=== PATIENT | male | born 1975 | race Caucasian/White ===

== ENCOUNTER 2019-06-11 07:50 | Emergency (ER) | payer OTHER ==
[2019-06-11 08:18] VITALS: O2SAT 98
--- NOTE | 2019-06-11 08:39 | XRAY ---
Indication: Pain following injury. Comparison: None 3 views of the left wrist obtained. No bony, articular, or soft tissue abnormalities.
--- NOTE | 2019-06-11 08:44 | ERPHSYRPT ---
- History of Present Illness Time Seen by Provider: 06/11/19 08:25 Source: patient Exam Limitations: no limitations Patient Subjective Stated Complaint: Left wrist injury Triage Nursing Assessment: Patient ambulated back to ED and transferred self to bed. Patient A+O X 3. Patient's skin pink, warm and dry. Patient complains of a left wrist injury after a work related incident. Patient states he was taking a piece of pipe off of a machine with a lot of pressure causing the pipe to hit his left wrist. Patient states pain is constant sharp and burning pain 9/10. No bruising or swelling noted. Patient has diesel fuel mixed with explosive on his clothing. Patient told nurse once back in ER. Patient declined shower, but was given a bag for dirty cloths and given fresh linens. Physician History: This is a right-handed 44-year-old white male who was at work this morning when an item under pressure was released and hit him in his left wrist. He is having pain in the area of his left wrist. He has sensation and full range of motion but is slow to move because of the pain. No other pain or injury sites present. patient's states that he has had hydrocodone in the past and is given him itching. He thinks he has had Tylenol with codeine that does not cause these type of symptoms. Occurred: just prior to arrival Method of Injury: direct blow Quality: aching, throbbing Severity of Pain-Max: moderate Severity of Pain-Current: moderate Extremities Pain Location: wrist: left Modifying Factors: Improves With: movement Associated Symptoms: none Allergies/Adverse Reactions: hydrocodone [From Vicodin] Allergy (Mild, Verified 06/11/19 08:32) Hx Influenza Vaccination/Date Given: Yes Hx Pneumococcal Vaccination/Date Given: No Immunizations Up to Date: Yes Travel Risk - International Travel Have you traveled outside of the country in past 3 weeks: No Have you or anyone close to you been diagnosed with or: No Do your reside in a community with a known COVID-19 case?: Yes If Yes where:: [place] - Coronavirus Screening Has patient experienced Coronavirus symptoms: No - Review of Systems Constitutional: No Symptoms Eyes: No Symptoms Ears, Nose, & Throat: No Symptoms Respiratory: No Symptoms Cardiac: No Symptoms Abdominal/Gastrointestinal: No Symptoms Genitourinary Symptoms: No Symptoms Musculoskeletal: Injury (Left wrist) Skin: No Symptoms Neurological: No Symptoms Psychological: No Symptoms Endocrine: No Symptoms Hematologic/Lymphatic: No Symptoms Immunological/Allergic: No Symptoms All Other Systems: Reviewed and Negative - Past Medical History Pertinent Past Medical History: Yes Neurological History: No Pertinent History ENT History: No Pertinent History Cardiac History: Myocardial Infarction (ND) Respiratory History: No Pertinent History Endocrine Medical History: Diabetes Type II Musculoskeletal History: No Pertinent History GI Medical History: No Pertinent History History: No Pertinent History Psycho-Social History: No Pertinent History Male Reproductive Disorders: No Pertinent History Other Medical History: Anemia - Past Surgical History Past Surgical History: Yes Neuro Surgical History: No Pertinent History Cardiac: No Pertinent History Respiratory: No Pertinent History Gastrointestinal: Cholecystectomy Genitourinary: No Pertinent History Musculoskeletal: Orthopedic Surgery Male Surgical History: No Pertinent History Other Surgical History: Right wrist, Right knee surgery, temporal artery surgery - Social History Smoking Status: Never smoker Exposure to second hand smoke: Yes Drug Use: none Patient Lives Alone: No - Nursing Vital Signs Nursing Vital Signs: Initial Vital Signs Temperature 98.0 F 06/11/19 08:00 Pulse Rate 88 06/11/19 08:00 Respiratory Rate 18 06/11/19 08:00 Blood Pressure 163/107 06/11/19 08:00 O2 Sat by Pulse Oximetry 98 06/11/19 08:00 Pain Scale Pain Intensity 9 - Physical Exam General Appearance: no apparent distress, alert, anxiety Eyes, Ears, Nose, Throat Exam: normal ENT inspection, moist mucous membranes Neck Exam: normal inspection, non-tender, supple, full range of motion Cardiovascular/Respiratory Exam: chest non-tender Abdominal Exam: non-tender Back Exam: normal inspection, normal range of motion, No CVA tenderness, No vertebral tenderness Shoulder Exam: normal inspection, non-tender, no evidence of injury, normal ROM Elbow/Forearm Exam: normal inspection, non-tender, no evidence of injury, normal ROM Wrist Exam: normal inspection, no evidence of injury, bone tenderness, limited ROM, soft tissue tenderness (Left wrist) Hand Exam: normal inspection, non-tender, no evidence of injury, normal ROM Neuro/Tendon Exam: normal sensation, normal tendon functions, responds to pain, no evidence tendon injury Mental Status Exam: alert, oriented x 3, cooperative Skin Exam: normal color, warm, dry SpO2 Interpretation: normal SpO2: 98 O2 Delivery: Room Air - Course Nursing assessment & vital signs reviewed: Yes Ordered Tests: Active Orders 24 hr Category Date Time Status WRIST (MIN 3 VIEWS) Stat Exams 06/11/19 08:31 Completed - Progress Progress: unchanged Progress Note: 06/11/19 08:44 X-ray of left wrist reveals no evidence of any acute fracture or dislocation Counseled pt/family regarding: diagnosis, need for follow-up, rad results - Departure Departure Disposition: Home Clinical Impression: Contusion of left wrist, initial encounter Condition: Stable Critical Care Time: No Additional Instructions: Ice pack to left wrist 3 times a day for the next 48 hours. Add ibuprofen 600 mg orally with food 3 times a day for the next 5 days. Follow-up with your primary care provider for persistent symptoms. If you have itching after taking the Tylenol with codeine tablet, stop the medication and take Benadryl 25 mg orally every 8 hours for the next 48 hours. Prescriptions: Acetaminophen with Codeine [Tylenol with Codeine #3 Tablet] 1 each PO Q8H PRN PRN #10 tablet MDD 3 PRN Reason: Moderate To Severe Pain
[2019-06-11 09:01] VITALS: BP 148/89; PULSE 78
== END 2019-06-11 09:01 | disposition home or self-care (01) ==
LOC: ED 07:50
DX: S60.212A Contusion of left wrist, initial encounter (principal); W22.8XXA Striking against or struck by other objects, initial encounter; Y93.89 Activity, other specified; Y92.89 Other specified places as the place of occurrence of the external cause; Y99.0 Civilian activity done for income or pay; E11.9 Type 2 diabetes mellitus without complications; I25.2 Old myocardial infarction
CPT/HCPCS: 73110; 99283